=== PATIENT | female | born 1990 | race Caucasian/White ===

== ENCOUNTER 2022-01-19 19:17 | Emergency (ER) | payer MEDICAID, SELFPAY ==
[2022-01-19 19:18] VITALS: BP 118/74; PULSE 113; RESP 18; TEMP 36.4; O2SAT 100
[2022-01-19] MEDS: METOCLOPRAMIDE HCL INJ 10 MG/2 ML VIAL IV PUSH (19:51)
[2022-01-19] MEDS: LACTATED RINGERS 1,000 ML 999 ML IV CONT (19:51)
--- NOTE | 2022-01-19 19:51 | ED.GENADULT ---
HPI - General Adult General Chief complaint: Recheck/Abnormal Lab/Rx Stated complaint: dehydration Time Seen by Provider: 01/19/22 19:27 History of Present Illness HPI narrative: 31yoF p/w nausea, fatigue that started this morning, difficulty keeping any fluids down. No abd pain, VB or discharge, dysuria, f/c, cough, diarrhea. No sick contacts. Related Data Home Medications Medication Instructions Recorded Confirmed ferrous sulfate 325 mg (65 mg mg 01/19/22 iron) tablet [id number] 1 mg tablet PO 01/19/22 tablet Allergies Allergy/AdvReac Type Severity Reaction Status Date / Time amoxicillin Allergy Anaphylactic Verified 01/19/22 19:22 Shock ampicillin Allergy Anaphylactic Verified 01/19/22 19:22 Shock clavulanic acid Allergy Anaphylactic Verified 01/19/22 19:22 [From Augmentin] Shock penicillin V Allergy Anaphylactic Verified 01/19/22 19:22 Shock Review of Systems Review of Systems: CONST: Fatigue HEENT: No sore throat C/V: No chest pain RESP: No cough GI: Nausea : No dysuria. M/S: No joint pain. SKIN: No rash. NEURO: [No headache or focal numbness or weakness] PSYCH: [No depression] ON LICENSE OF [facility] Past Medical History Medical History (Updated 01/19/22 @ 20:11 by Paz Griffin MD) Anemia Social History Social History (Updated 01/19/22 @ 20:12 by Paz Griffin MD) Smoking status: Never smoker Exam Narrative: EXAMINATION OF ORGAN SYSTEMS/BODY AREAS: Constitutional: Vital signs per nursing GENERAL:[No acute distress, non-toxic appearing.] HEAD: Normal with no signs of head trauma. EYES: EOMI, conjunctiva normal ENT: Hearing grossly intact LUNGS: Nonlabored breathing. HEART: Tachycardic ABD: [Soft], [nontender to palpation], gravid. No CVA tenderness EXT: Normal range of motion SKIN: [No rashes or lesions.] NEURO: [Alert and oriented x 3. No gross focal sensory or strength deficits.] PSYCH: Normal affect Course Vital Signs Vital signs: Vital Signs Temperature 97.5 F L 01/19/22 19:18 Pulse Rate 113 H 01/19/22 19:18 Respiratory Rate 18 01/19/22 19:18 Blood Pressure 118/74 01/19/22 19:18 Pulse Oximetry 100 01/19/22 19:18 Oxygen Delivery Room Air 01/19/22 19:18 Temperature 97.5 F L 01/19/22 19:18 Pulse Rate 113 H 01/19/22 19:18 Respiratory Rate 18 01/19/22 19:18 Blood Pressure 118/74 01/19/22 19:18 Pulse Oximetry 100 01/19/22 19:18 Oxygen Delivery Room Air 01/19/22 19:18 Medical Decision Making MDM Narrative Medical decision making narrative: 23-year-old female presenting with nausea, vitals notable for tachycardia, she is otherwise well-appearing with nontender abdomen, suspect possible dehydration, infection. Doubt any surgical emergency without any abdominal pain or tenderness. Labs including urinalysis obtained, which does show and asymptomatic bacteriuria, she will be started on antibiotics as she is , she is given IV fluids and Reglan and on reevaluation is feeling much better, ready to go home. She is urged to follow-up with her OB and assured she can always return if feeling worse. Vital Signs Vital Signs: Vital Signs Temperature 97.5 F L 01/19/22 19:18 Pulse Rate 113 H 01/19/22 19:18 Respiratory Rate 18 01/19/22 19:18 Blood Pressure 118/74 01/19/22 19:18 Pulse Oximetry 100 01/19/22 19:18 Oxygen Delivery Room Air 01/19/22 19:18 Temperature 97.5 F L 01/19/22 19:18 Pulse Rate 113 H 01/19/22 19:18 Respiratory Rate 18 01/19/22 19:18 Blood Pressure 118/74 01/19/22 19:18 Pulse Oximetry 100 01/19/22 19:18 Oxygen Delivery Room Air 01/19/22 19:18 Lab Data Result diagrams: 01/19/22 19:44 01/19/22 19:44 Labs: Lab Results 01/19/22 01/19/22 01/19/22 Range/Units 19:44 19:44 19:44 WBC 7.0 (4.5-10.0) K/mm3 RBC 3.57 L (4.2-5.4) M/mm3 Hgb 11.0 L (12.0-15.0) g/dL Hct 33.0 L (37.0-47.0) % MCV
[2022-01-19 19:53] LABS: Basophils Percent Auto 0.1 % (0.2-1.2); Eosinophils Percent Auto 0.1 % (0-4.4); Immature Granulocyte Absolute 0.06 K/mm3 (0.00-0.031); Immature Granulocyte Percent A 0.9 % (0-0.5); Lymphocytes Absolute Auto 0.33 K/mm3 (0.9-3.2); Lymphocytes Percent Auto 4.7 % (18.3-44.2); Mean Corpuscular HGB Conc 33.3 g/dl (32-36); Mean Corpuscular Hemoglobin 30.8 pg (26-34); Mean Corpuscular Volume 92.4 fl (80-100); Mean Platelet Volume 9.3 fl (7.4-10.4); Monocytes Absolute Auto 0.4 K/mm3 (0.1-0.6); Monocytes Percent Auto 6.1 % (2.6-8.5); Neutrophils Absolute Auto 6.2 K/mm3 (1.3-6.7); Neutrophils Percent Auto 88.1 % (45.5-73.1); Platelet Count Result 248 k/mm3 (150-375); Red Blood Count 3.57 M/mm3 (4.2-5.4); Red Cell Distribution Width 12.4 % (11.5-14.5)
[2022-01-19 19:57] LABS: Appearance Urine Clear (Clear); Bacteria Urine 2+ /hpf; Bilirubin Urine Negative (Negative); Blood Urine Negative (Negative); Color Urine Yellow (Yellow); Glucose Urine UA Negative (Negative); Ketones Urine Negative (Negative); Leukocyte Esterase Ur Trace LEU/UL (Negative); Mucus Urine Rare /lpf; Nitrate Urine Negative (Negative); Protein Urine Negative (Negative); RBC Urine 0-2 /hpf (0-2); Squamous Epithelial Cell Urine Moderate /hpf (Few); Urobilinogen Urine 0.2 mg/dL (<2.0); pH Urine 6.5 (5.0-9.0)
[2022-01-19 19:59] LABS: Add Urine Microscopic? YES
[2022-01-19 20:04] LABS: Alanine Aminotransferase 9 U/L (6-35); Albumin Level 3.6 g/dL (3.5-5.1); Alkaline Phosphatase 98 U/L (38-126); Anion Gap 5 mmol/L (8-16); Aspartate Amino Transferase 16 U/L (14-36); Bilirubin,Total 0.4 mg/dL (0.2-1.3); Blood Urea Nitrogen 5 mg/dL (7-17); Calcium 7.4 mg/dL (8.4-10.2); Carbon Dioxide 19 mmol/L (22-30); Chloride 106 mmol/L (98-107); Estimated CRCL calculation 169 ml/min; Estimated Glomerular Filt Rate > 60; Glucose 108 mg/dL (65-110); Lipase 81 U/L (23-300); Potassium 3.7 mmol/L (3.4-5.0); Sodium 130 mmol/L (137-145)
[2022-01-19] MEDS: NITROFURANTOIN MONOHYD MACROCR 100 MG CAP PO (20:47)
[2022-01-19 20:53] VITALS: BP 112/68; PULSE 104; RESP 16; O2SAT 99
== END 2022-01-19 21:02 | disposition home or self-care (01) ==
PROVIDERS: Emergency Provider Emergency Medicine
DX: O26.893 Other specified pregnancy related conditions, third trimester (principal); R82.71 Bacteriuria; R11.0 Nausea; O99.283 Endocrine, nutritional and metabolic diseases complicating pregnancy, third trimester; E86.0 Dehydration; O99.013 Anemia complicating pregnancy, third trimester; D64.9 Anemia, unspecified; Z3A.31 31 weeks gestation of pregnancy
CPT/HCPCS: 36415; 80053; 81001; 83690; 85025; 96361; 96374; 99284; A9270; J2765; J7120